=== PATIENT | female | born 1960 | race Caucasian/White ===

== ENCOUNTER → 2017-04-04 | Outpatient (CLI) | payer MEDICARE, MEDICAID ==
[~2017-04-04] MED LIST: 'XANAX1 MG PO; ADDERALL5 MG PO; AMBIEN5 MG PO; AMITRIPTYLINE100 M1 PO; ATARAX25 MG PO; ATIVAN0.5 MG PO; AUGMENTIN 875875 MG PO; BUPROPION HCL300 MG PO; HYDROCODONE BIT1 T11 PO; KEFLEX500 MG PO; MEDROL DOSEPAK4 MG PO; Motrin,Rufen800 MG PO; NEURONTIN300 MG PO; OXYCODONE AND A1 TA3 PO; PAXIL CR25 MG PO; PENICILLIN VK500 MG PO; PREVACID30 MG PO; PROZAC40 MG PO; ROBAXIN750 MG PO; SEROQUEL300 MG PO; SERTRALINE HYD100 MG PO; TRAMADOL HCL50 MG PO; TRAZODONE HCL100 MG PO; TRAZODONE HCL150 MG PO; TRAZODONE100 MG PO; TRICOR134 MG PO; VOLTAREN50 M1 PO; ZITHROMAX Z PA250 MG PO; [UNRECOGNIZED DRUG - OTHER] PO
== END | disposition home or self-care (01) ==
LOC: US 03-30 10:00
DX: R10.11 Right upper quadrant pain (principal); R11.0 Nausea

== ENCOUNTER → 2017-05-04 | Outpatient (CLI) | payer MEDICARE, MEDICAID | END | disposition home or self-care (01) | LOC: MAMMO 04-19 14:20 → NM 00:50 → MAMMO 09:00 | DX: Z12.31 Encounter for screening mammogram for malignant neoplasm of breast (principal); R10.11 Right upper quadrant pain; R11.0 Nausea; K30 Functional dyspepsia ==

== ENCOUNTER → 2019-05-15 | Outpatient (CLI) | payer MEDICARE, MEDICAID | END | disposition home or self-care (01) | LOC: RAD 13:22 | DX: M89.8X8 Other specified disorders of bone, other site (principal); W19.XXXA Unspecified fall, initial encounter; Y93.89 Activity, other specified; Y92.89 Other specified places as the place of occurrence of the external cause; Y99.8 Other external cause status ==

== ENCOUNTER 2022-03-06 23:04 | Emergency (ER) | payer MEDICARE, MEDICAID | END 2022-03-07 01:00 | disposition home or self-care (01) | LOC: ED 23:04 | DX: S91.312A Laceration without foreign body, left foot, initial encounter (principal); W45.8XXA Other foreign body or object entering through skin, initial encounter; Y93.89 Activity, other specified; Y92.89 Other specified places as the place of occurrence of the external cause; Y99.8 Other external cause status ==

== ENCOUNTER → 2022-08-25 | Outpatient (CLI) | payer MEDICARE, MEDICAID | END | disposition home or self-care (01) | LOC: MAMMO 07-13 01:31 | PROVIDERS: ATTEND Family Medicine | DX: Z12.31 Encounter for screening mammogram for malignant neoplasm of breast (principal); N64.9 Disorder of breast, unspecified ==

== ENCOUNTER 2022-12-28 22:11 | Emergency (ER) | payer MEDICARE, MEDICAID ==
[~2022-12-28] VITALS: Ht 170.1 cm; Wt 65.3 kg
== END 2022-12-28 23:08 | disposition home or self-care (01) ==
LOC: ED 22:11
DX: S61.012A Laceration without foreign body of left thumb without damage to nail, initial encounter (principal); Z91.041 Radiographic dye allergy status; Z90.710 Acquired absence of both cervix and uterus; Z90.12 Acquired absence of left breast and nipple; W26.8XXA Contact with other sharp object(s), not elsewhere classified, initial encounter; Y93.89 Activity, other specified; Y92.89 Other specified places as the place of occurrence of the external cause; Y99.8 Other external cause status

== ENCOUNTER → 2024-08-29 | Outpatient (CLI) | payer OTHER, MEDICAID ==
[2024-08-29 14:13] LABS: ALKALINE PHOSPHATASE 59 U/L (46-116); BUN 11 mg/dl (9-23); CHLORIDE 105 mmol/L (98-107); POTASSIUM 4.5 mmol/L (3.4-5.1); SGPT/ALT 23 U/L (5-49); TOTAL PROTEIN 6.7 gm/dL (6.0-8.0)
== END | disposition home or self-care (01) ==
LOC: LAB 08-20 01:25
PROVIDERS: ATTEND Orthopaedic Surgery
DX: R53.83 Other fatigue (principal)